=== PATIENT | female | born 1965 | race African-American/Black ===

== ENCOUNTER 2024-01-13 06:59 | Inpatient (IN) | payer SELFPAY ==
[~2024-01-13] VITALS: Ht 182.9 cm; Wt 70.3 kg
[2024-01-13] MEDS ORDERED: NITROGLYCERIN 50MG PREMIX 250 ML IV ONE (07:15)
[2024-01-13 07:32] LABS: BASOPHILS % 0.9 % (0.0-2.0); EOSINOPHILS % 2.8 % (0.0-5.0); HEMATOCRIT. 32.1 % (36.0-48.0); HEMOGLOBIN. 10.7 g/dL (12.0-16.0); LYMPHOCYTES % 19.3 % (20.0-50.0); MEAN CORPUSCULAR HEMOGLOBIN 30.9 pg (28.0-32.0); MEAN CORPUSCULAR HGB CONC 33.2 g/dL (31.0-37.0); MEAN CORPUSCULAR VOLUME 93.1 fL (81.0-99.0); MEAN PLATELET VOLUME 8.5 fl (7.4-10.4); MONOCYTES % 8.5 % (2.0-8.0); NEUTROPHILS % 68.5 % (40.0-76.0); PLATELET 312 x1000/uL (130-400); RED BLOOD CELL COUNT 3.45 mill/uL (4.2-5.4); RED CELL DISTRIBUTION WIDTH 16.5 % (11.6-14.6); WHITE BLOOD COUNT 10.8 x1000/uL (4.5-11.0)
[2024-01-13] MEDS: NITROGLYCERIN 50MG PREMIX 250 ML IV PRN (07:36)
[2024-01-13 07:41] VITALS: O2SAT 100
[2024-01-13] MEDS: MIDAZOLAM HCL 2 MG/2 ML VIAL IV ONE (07:41)
[2024-01-13 07:46] LABS: CHLORIDE 100 mEq/L (98-107); POTASSIUM 3.7 mEq/L (3.5-5.1); SODIUM 132 mEq/L (136-145)
[2024-01-13 07:47] LABS: CARBON DIOXIDE 27 mEq/L (21-32)
[2024-01-13 07:52] LABS: CREATININE 0.6 mg/dL (0.6-1.0); GLUCOSE 143 mg/dL (70-105)
[2024-01-13 07:53] LABS: TROPONIN I HIGH SENSITIVITY 10 ng/L (3.0-34); UREA NITROGEN BLOOD 8 mg/dL (9-23)
[2024-01-13 07:54] LABS: ALANINE AMINOTRANSFERASE 60 IU/L (10-49); ALBUMIN 3.7 g/dL (3.2-4.8); ASPARTATE AMINOTRANSFERASE 43 IU/L (<34)
[2024-01-13 07:55] LABS: BILIRUBIN TOTAL 0.4 mg/dL (0.1-1.0); PROTEIN TOTAL 7.1 g/dL (6.0-8.3)
[2024-01-13 08:00] VITALS: RESP 22
[2024-01-13] MEDS: HALOPERIDOL LACTATE 5MG/ML VIAL IM ONE (09:33)
[2024-01-13 14:00] VITALS: BP 131/60; PULSE 111; RESP 16; TEMP 97.2
[2024-01-13] MEDS ORDERED: DOCUSATE SODIUM 100MG CAPSULE PO PRN (15:15)
[2024-01-13] MEDS ORDERED: ACETAMINOPHEN 325MG TABLET PO PRN ×2 (15:15)
[2024-01-13] MEDS ORDERED: IPRATROPIUM/ALBUTEROL 0.5-3(2.5)MG/3ML NEB HHN PRN (15:15)
[2024-01-13] MEDS ORDERED: CLONIDINE 0.1MG TABLET PO PRN (15:15)
[2024-01-13] MEDS ORDERED: ONDANSETRON HCL 4MG/2ML INJ IV PRN (15:15)
[2024-01-13 16:53] VITALS: BP 138/56; PULSE 78; RESP 16; TEMP 97.9
[2024-01-13 20:00] VITALS: BP 134/80; PULSE 116; RESP 20; TEMP 97.4
[2024-01-14] VITALS: BP 130/75; PULSE 103; RESP 18; TEMP 97
[2024-01-14 04:00] VITALS: BP 119/74; PULSE 97; RESP 18; TEMP 97.3
[2024-01-14 06:24] LABS: CHLORIDE 104 mEq/L (98-107); POTASSIUM 3.9 mEq/L (3.5-5.1); SODIUM 137 mEq/L (136-145)
[2024-01-14 06:25] LABS: CALCIUM 9.4 mg/dL (8.7-10.4); CARBON DIOXIDE 28 mEq/L (21-32)
[2024-01-14 06:30] LABS: CREATININE 0.6 mg/dL (0.6-1.0); GLUCOSE 82 mg/dL (70-105); UREA NITROGEN BLOOD 7 mg/dL (9-23)
[2024-01-14 06:32] LABS: ALANINE AMINOTRANSFERASE 40 IU/L (10-49); ALBUMIN 3.3 g/dL (3.2-4.8); ASPARTATE AMINOTRANSFERASE 24 IU/L (<34)
[2024-01-14 06:33] LABS: BILIRUBIN TOTAL 0.8 mg/dL (0.1-1.0); PROTEIN TOTAL 6.4 g/dL (6.0-8.3)
[2024-01-14 06:46] LABS: EOSINOPHILS % 2.9 % (0.0-5.0); HEMATOCRIT. 32.1 % (36.0-48.0); HEMOGLOBIN. 10.6 g/dL (12.0-16.0); LYMPHOCYTES % 21.7 % (20.0-50.0); MEAN CORPUSCULAR HEMOGLOBIN 30.3 pg (28.0-32.0); MEAN CORPUSCULAR HGB CONC 33.2 g/dL (31.0-37.0); MEAN CORPUSCULAR VOLUME 91.4 fL (81.0-99.0); MEAN PLATELET VOLUME 9.1 fl (7.4-10.4); NEUTROPHILS % 64.4 % (40.0-76.0); PLATELET 317 x1000/uL (130-400); RED BLOOD CELL COUNT 3.51 mill/uL (4.2-5.4); RED CELL DISTRIBUTION WIDTH 16.8 % (11.6-14.6); WHITE BLOOD COUNT 8.6 x1000/uL (4.5-11.0)
[2024-01-14] MEDS ORDERED: FUROSEMIDE 40MG/4ML VIAL IVP SCH (09:00)
== END 2024-01-14 05:35 | disposition left against medical advice (07) | DRG 194 ==
LOC: ER 07:32 → 5WST 09:34 → EDBEDREQ 09:50 → EDBEDREQTM 09:51 → 7EST 16:00
PROVIDERS: ADMIT Family Medicine Adult Medicine; ATTEND Family Medicine Adult Medicine
DX: I11.0 Hypertensive heart disease with heart failure (principal); I50.9 Heart failure, unspecified
CPT/HCPCS: 36415; 71045; 80053; 83880; 84484; 85025; 93005; 99285; J1630; J2250; J3490